=== PATIENT | male | born 1950 | race Two or more races ===

== ENCOUNTER 2025-01-29 09:45 | Emergency (ER) | payer OTHER ==
[~2025-01-29] VITALS: Ht 172.7 cm; Wt 68.0 kg
[2025-01-29] MEDS ORDERED: COZAAR50 MG (09:50)
[2025-01-29] MEDS ORDERED: TOPROL XL50 M1 (09:50)
== END 2025-01-29 13:34 ==
LOC: ER 09:45
DX: R60.0 Localized edema (principal); I10 Essential (primary) hypertension; F17.210 Nicotine dependence, cigarettes, uncomplicated